=== PATIENT | male | born 1955 | race African-American/Black ===

== ENCOUNTER 2025-05-14 18:31 | Inpatient (IN) | payer MEDICARE, MEDICAID ==
[~2025-05-14] VITALS: Ht 180.3 cm; Wt 83.0 kg
[~2025-05-14 18:31] MED LIST: BENZ1TAB79 MT; DIVA250T4 MT; GABA100C MT; HALO5TAB2 MT; MULT10VI5 IV; TOPUD MT
[2025-05-14 19:14] LABS: BASOPHILS % 0.3 % (0.0-2.0); EOSINOPHILS % 0.7 % (0.0-5.0); HEMATOCRIT. 36.1 % (42.0-52.0); HEMOGLOBIN. 12.4 g/dL (14.0-18.0); LYMPHOCYTES % 9.0 % (20.0-50.0); MEAN PLATELET VOLUME 7.7 fl (7.4-10.4); MONOCYTES % 11.0 % (2.0-8.0); NEUTROPHILS % 79.0 % (40.0-76.0); PLATELET 362 x1000/uL (130-400); RED BLOOD CELL COUNT 3.55 mill/uL (4.7-6.1); RED CELL DISTRIBUTION WIDTH 12.0 % (11.6-14.6)
[2025-05-14] MEDS: SODIUM CHLORIDE 0.9% (SEPSIS BOLUS) IV ONE (19:20)
[2025-05-14 19:25] LABS: INR 1.1
[2025-05-14 19:31] LABS: CREATININE 0.8 mg/dL (0.6-1.3); UREA NITROGEN BLOOD 9 mg/dL (9-23)
[2025-05-14] MEDS: CEFTRIAXONE 1GM/50ML 50 ML IV ONE (19:35)
[2025-05-14] MEDS: AZITHROMYCIN 500MG/250ML 250 ML IV ONE (20:08)
[2025-05-14 20:17] LABS: CLARITY URINE CLEAR (CLEAR); COLOR URINE YELLOW (YELLOW); GLUCOSE URINE NEGATIVE (NEGATIVE); KETONES URINE TRACE (NEGATIVE); LEUKOCYTE ESTERASE URINE NEGATIVE (NEGATIVE); NITRITE URINE NEGATIVE (NEGATIVE); OCCULT BLOOD URINE NEGATIVE (NEGATIVE); PH URINE 7.0 (4.5-8.0); PROTEIN URINE NEGATIVE (NEGATIVE); SPECIFIC GRAVITY URINE 1.006 (1.005-1.030); UROBILINOGEN URINE 1.0 E.U./dL (0.2-1.0)
[2025-05-14] MEDS: AMLODIPINE 10MG TABLET PO ONE (21:02)
[2025-05-14] MEDS ORDERED: DOCUSATE SODIUM 100MG CAPSULE PO PRN (22:15)
[2025-05-14] MEDS ORDERED: ACETAMINOPHEN 325MG TABLET PO PRN (22:15)
[2025-05-14] MEDS ORDERED: IPRATROPIUM/ALBUTEROL 0.5-3(2.5)MG/3ML NEB HHN PRN (22:15)
[2025-05-14] MEDS ORDERED: GUAIFENESIN 200MG/10ML SUGAR FREE UDC PO PRN (22:15)
[2025-05-14] MEDS ORDERED: CLONIDINE 0.1MG TABLET PO PRN (22:15)
[2025-05-14 22:30] VITALS: BP 167/98; PULSE 98; RESP 20; TEMP 36.5; O2SAT 100
[2025-05-14] MEDS ORDERED: HALO10TA13 MT (23:12)
[2025-05-14] MEDS ORDERED: CHOL100046 PO (23:12)
[2025-05-14] MEDS ORDERED: DOCU-138 MT (23:12)
[2025-05-14] MEDS ORDERED: ASPI-1497 MT (23:12)
[2025-05-14] MEDS ORDERED: ASCO-339 MT (23:12)
[2025-05-14] MEDS ORDERED: MULT-1318 PO (23:12)
[2025-05-14] MEDS ORDERED: FAMO-135 MT (23:12)
[2025-05-14] MEDS ORDERED: ALBU10.7 INH (23:12)
[2025-05-14 23:31] LABS: SODIUM URINE RANDOM 48 mEq/L
[2025-05-14 23:35] LABS: CLARITY URINE CLEAR (CLEAR); COLOR URINE YELLOW (YELLOW); GLUCOSE URINE NEGATIVE (NEGATIVE); KETONES URINE NEGATIVE (NEGATIVE); LEUKOCYTE ESTERASE URINE NEGATIVE (NEGATIVE); NITRITE URINE NEGATIVE (NEGATIVE); OCCULT BLOOD URINE NEGATIVE (NEGATIVE); PH URINE 7.5 (4.5-8.0); PROTEIN URINE NEGATIVE (NEGATIVE); SPECIFIC GRAVITY URINE 1.003 (1.005-1.030); UROBILINOGEN URINE 0.2 E.U./dL (0.2-1.0)
[2025-05-14 23:38] LABS: *AMPHETAMINES SCREEN URINE NEGATIVE (NEGATIVE); *BARBITURATES SCREEN URINE NEGATIVE (NEGATIVE); *BENZODIAZEPINES SCREEN URINE NEGATIVE (NEGATIVE); *COCAINE SCREEN URINE NEGATIVE (NEGATIVE)
[2025-05-14 23:39] LABS: CANNABINOID URINE SCREEN NEGATIVE (NEGATIVE); ECSTASY MDMA SCREEN URINE NEGATIVE (NEGATIVE); METHADONE URINE SCREEN NEGATIVE (NEGATIVE); OPIATES URINE SCREEN NEGATIVE (NEGATIVE); PHENCYCLIDINE URINE SCREEN NEGATIVE (NEGATIVE)
[2025-05-14] MEDS: LOSARTAN 50 MG TABLET PO SCH (23:51)
[2025-05-14] MEDS: SODIUM CHLORIDE 0.9% 1,000 ML IV SCH (23:51)
[2025-05-14] MEDS: DIVALPROEX SODIUM 250MG DR TABLET PO SCH (23:52)
[2025-05-14] MEDS: HALOPERIDOL 5MG TABLET PO SCH (23:52)
[2025-05-15 00:24] VITALS: BP 142/88; PULSE 90; RESP 20; TEMP 37; O2SAT 98
[2025-05-15 02:02] LABS: OSMOLALITY URINE 122 mOsm/kg (500-850)
[2025-05-15 04:00] VITALS: BP 131/86; PULSE 97; RESP 18; TEMP 36.9; O2SAT 97
[2025-05-15 07:29] LABS: BASOPHILS % 0.2 % (0.0-2.0); EOSINOPHILS % 1.5 % (0.0-5.0); HEMATOCRIT. 36.1 % (42.0-52.0); HEMOGLOBIN. 12.3 g/dL (14.0-18.0); LYMPHOCYTES % 10.8 % (20.0-50.0); MEAN PLATELET VOLUME 7.6 fl (7.4-10.4); MONOCYTES % 12.9 % (2.0-8.0); NEUTROPHILS % 74.6 % (40.0-76.0); PLATELET 383 x1000/uL (130-400); RED BLOOD CELL COUNT 3.57 mill/uL (4.7-6.1); RED CELL DISTRIBUTION WIDTH 12.0 % (11.6-14.6)
[2025-05-15 07:48] LABS: CREATININE 0.7 mg/dL (0.6-1.3)
[2025-05-15 07:49] LABS: LDL CHOLESTEROL 77 mg/dL (5-100); TRIGLYCERIDE 51 mg/dL (0-150); UREA NITROGEN BLOOD 7 mg/dL (9-23)
[2025-05-15 07:50] LABS: ASPARTATE AMINOTRANSFERASE 31 IU/L (<34); BILIRUBIN DIRECT 0.2 mg/dL (<=3.0); CREATINE KINASE MB FRACTION 6.2 ng/mL (0.5-3.6); PHOSPHORUS 2.5 mg/dL (2.5-4.9)
[2025-05-15 07:51] LABS: BILIRUBIN TOTAL 0.5 mg/dL (0.1-1.0); PROTEIN TOTAL 7.0 g/dL (6.0-8.3); TROPONIN I HIGH SENSITIVITY 7 ng/L (3.0-53)
[2025-05-15 07:54] LABS: T4 FREE 1.50 ng/dL (0.89-1.76)
[2025-05-15 07:56] LABS: FOLIC ACID (FOLATE) SERUM > 20.00 ng/mL (>5.38)
[2025-05-15 07:57] LABS: VITAMIN B12 SERUM 767 pg/mL (211-911)
[2025-05-15 08:00] VITALS: BP 139/77; PULSE 87; RESP 18; TEMP 36.7; O2SAT 98
[2025-05-15] MEDS ORDERED: DIVALPROEX SODIUM 250MG DR TABLET PO SCH (09:00)
[2025-05-15] MEDS: BENZTROPINE MESYLATE 1MG TABLET PO SCH (11:36)
[2025-05-15] MEDS: GABAPENTIN 100MG CAPSULE PO SCH (11:36)
[2025-05-15] MEDS: ENOXAPARIN 40MG/0.4ML SYR SUBCUT SCH (11:36)
[2025-05-15] MEDS: AZITHROMYCIN 250 MG TABLET PO SCH (11:36)
[2025-05-15] MEDS: ASPIRIN 81MG EC TABLET PO SCH (11:37)
[2025-05-15] MEDS: AMLODIPINE 10MG TABLET PO SCH (11:44)
[2025-05-15 12:00] VITALS: BP 125/82; PULSE 89; RESP 20; TEMP 37.2; O2SAT 97
[2025-05-15 16:00] VITALS: BP 129/79; PULSE 88; RESP 18; TEMP 36.4; O2SAT 95
[2025-05-15 20:00] VITALS: BP 144/92; PULSE 92; RESP 18; TEMP 36.7; O2SAT 100
[2025-05-15] MEDS: CEFTRIAXONE 1GM/50ML 50 ML IV SCH (21:01)
[2025-05-15] MEDS: FAMOTIDINE 20MG TABLET PO SCH (21:01)
[2025-05-16] VITALS: BP 118/72; PULSE 91; RESP 18; TEMP 36.3; O2SAT 100
[2025-05-16 04:00] VITALS: BP 120/86; PULSE 98; RESP 16; TEMP 36.2; O2SAT 95
[2025-05-16 07:41] LABS: BASOPHILS % 0.3 % (0.0-2.0); EOSINOPHILS % 1.8 % (0.0-5.0); HEMATOCRIT. 38.3 % (42.0-52.0); HEMOGLOBIN. 12.8 g/dL (14.0-18.0); LYMPHOCYTES % 8.7 % (20.0-50.0); MEAN PLATELET VOLUME 7.4 fl (7.4-10.4); MONOCYTES % 10.7 % (2.0-8.0); NEUTROPHILS % 78.5 % (40.0-76.0); PLATELET 401 x1000/uL (130-400); RED BLOOD CELL COUNT 3.75 mill/uL (4.7-6.1); RED CELL DISTRIBUTION WIDTH 12.0 % (11.6-14.6)
[2025-05-16 08:00] VITALS: BP 129/82; PULSE 81; RESP 20; TEMP 36.7; O2SAT 98
[2025-05-16 08:10] LABS: CREATININE 0.8 mg/dL (0.6-1.3); UREA NITROGEN BLOOD 7 mg/dL (9-23)
[2025-05-16 08:12] LABS: ASPARTATE AMINOTRANSFERASE 26 IU/L (<34); BILIRUBIN TOTAL 0.6 mg/dL (0.1-1.0)
[2025-05-16 08:13] LABS: PROTEIN TOTAL 7.4 g/dL (6.0-8.3)
[2025-05-16] MEDS: FERROUS SULFATE 325MG TABLET PO SCH (09:12)
[2025-05-16 12:00] VITALS: BP_SYST 127; PULSE 87; RESP 18; TEMP 36.6; O2SAT 98
[2025-05-16 16:00] VITALS: BP 116/80; PULSE 70; RESP 16; TEMP 36.4; O2SAT 95
[2025-05-16] MEDS: ACETAMINOPHEN 325MG TABLET PO PRN (18:03)
[2025-05-16 20:00] VITALS: BP 129/94; PULSE 80; RESP 20; TEMP 36.4; O2SAT 100
[2025-05-17] VITALS: BP 128/90; PULSE 82; RESP 19; TEMP 36.2; O2SAT 100
[2025-05-17 04:00] VITALS: BP 135/88; PULSE 90; RESP 19; TEMP 36.1; O2SAT 99
[2025-05-17 06:27] LABS: CREATININE 0.7 mg/dL (0.6-1.3); UREA NITROGEN BLOOD 7 mg/dL (9-23)
[2025-05-17 06:48] LABS: BASOPHILS % 0.7 % (0.0-2.0); EOSINOPHILS % 2.8 % (0.0-5.0); HEMATOCRIT. 35.9 % (42.0-52.0); HEMOGLOBIN. 12.4 g/dL (14.0-18.0); LYMPHOCYTES % 15.8 % (20.0-50.0); MEAN PLATELET VOLUME 7.7 fl (7.4-10.4); MONOCYTES % 12.5 % (2.0-8.0); NEUTROPHILS % 68.2 % (40.0-76.0); PLATELET 389 x1000/uL (130-400); RED BLOOD CELL COUNT 3.54 mill/uL (4.7-6.1); RED CELL DISTRIBUTION WIDTH 12.1 % (11.6-14.6)
[2025-05-17 08:00] VITALS: BP 103/69; PULSE 76; RESP 19; TEMP 36.8; O2SAT 99
[2025-05-17 12:00] VITALS: BP 131/81; PULSE 77; RESP 18; TEMP 36.6; O2SAT 99
[2025-05-17] MEDS ORDERED: FERR-63 PO (12:25)
[2025-05-17] MEDS ORDERED: AZIT250T12 PO (12:25)
[2025-05-17] MEDS ORDERED: LOSA50TA41 PO (12:25)
[2025-05-17] MEDS ORDERED: AMLO10TA80 PO (12:25)
[2025-05-17 16:00] VITALS: BP 152/86; PULSE 79; RESP 18; TEMP 36.8; O2SAT 100
[2025-05-17 16:06] VITALS: BP 131/81; PULSE 77; TEMP 97.9; O2SAT 99
== END 2025-05-17 16:45 | DRG 872 ==
LOC: ER 18:31 → EDBEDREQ 20:37 → EDBEDREQSVC 21:23 → ENRESERV 21:55 → 7WST 22:57
PROVIDERS: ADMIT Hospitalist; ATTEND Hospitalist
DX: A41.9 Sepsis, unspecified organism (principal); E87.1 Hypo-osmolality and hyponatremia; F20.0 Paranoid schizophrenia; F03.93 Unspecified dementia, unspecified severity, with mood disturbance; F31.9 Bipolar disorder, unspecified; I16.0 Hypertensive urgency; D64.9 Anemia, unspecified; F17.210 Nicotine dependence, cigarettes, uncomplicated; R73.9 Hyperglycemia, unspecified; N18.9 Chronic kidney disease, unspecified; I13.10 Hypertensive heart and chronic kidney disease without heart failure, with stage 1 through stage 4 chronic kidney disease, or unspecified chronic kidney disease; I25.10 Atherosclerotic heart disease of native coronary artery without angina pectoris; K21.9 Gastro-esophageal reflux disease without esophagitis; J44.9 Chronic obstructive pulmonary disease, unspecified; Z86.73 Personal history of transient ischemic attack (TIA), and cerebral infarction without residual deficits; Z79.899 Other long term (current) drug therapy; Z79.82 Long term (current) use of aspirin
CPT/HCPCS: 36415; 71045; 80048; 80053; 80061; 80076; 80305; 81003; 82533; 82553; 82607; 82728; 82746; 83036; 83540; 83550; 83605; 83735; 83880; 83930; 83935; 84100; 84145; 84300; 84439; 84443; 84484; 84550; 85025; 85044; 86850; 86900; 93005; 93970; 97116; 97162; 97166; 99291; J0456; J0696; J1650